=== PATIENT | male | born 1955 | race Caucasian/White ===

== ENCOUNTER 2023-07-22 10:48 | Outpatient (AMB) | payer OTHER, SELFPAY ==
[2023-07-22 10:50] VITALS: BP 164/90; PULSE 66; RESP 17; O2SAT 95; BMI 30.8
--- NOTE | 2023-07-22 10:50 | A.OFFVIS_ITS ---
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 Pt is here with his daughter Charleen, who will be interpreting this visit for him. Pt reports he has become very forgetful over the past year. Living Skills Advisor Required: Yes Living Skills Advisor Name: Prema Villaseñor Allergies No Known Allergies Allergy (Verified 07/22/23 10:55) HPI HPI Comments History of Present Illness Details 68y/o Finnish speaking male comes for ev aluation of memory issues. He is accompanied by his daughter who helps with history . He started having short term memory issues for about 1 year. Last year he developed acute kidney disease ? and he was very confused at that time.He recovered after that but still has short term memory issues.He had confusion with directions once while driving.He forgets what he ate , forgets meds sometimes. he can get confused with dates, time etc.He sometimes has trouble turning off the oven. No trouble using computer or phone. His son in 2018 - was depressed and was taking sertraline.He is still sad and dose was increased. He wakes twice to use the bathroom other paelncia sleep is OK>He has snoring. He has excessive daytime sleepiness and naps twice a day He wakes at 3- 4 am -does breakfast , walking and then naps again. [facility] Medical History (Updated 07/22/23 @ 12:17 by Jenny Gracia MD) Hypersomnia Snoring Cognitive change CAD (coronary artery disease) Kidney disease Headache GERD (gastroesophageal reflux disease) Hyperlipidemia HTN (hypertension) Surgical History H/O inguinal hernia repair Family History Mother No problems noted. Father No problems noted. Social History Household Members: Spouse Housing: Apartment Alcohol intake: never Patient Tobacco Use Status: Former Tobacco user Years Smoked: Quit after smoking for 30 years Physical Exam Vital Signs: Last Vital Signs Pulse 66 07/22/23 10:50 Resp 17 07/22/23 10:50 BP 164/90 H 07/22/23 10:50 Pulse Ox 95 07/22/23 10:50 Oxygen Delivery Method Room Air 07/22/23 10:50 BMI result Body Mass Index 30.8 Const General: cooperative, healthy appearing, comfortable and no acute distress Nutritional Appearance: average body habitus Orientation/consciousness: patient oriented x3 Eyes Pupils: Equal, round and reactive pupils present Neuro General: patient oriented x3, gait normal, tone normal, moves all extremities and no focal motor deficits Cranial nerves: Yes Facial sensation intact/muscles of mastication intact, Yes Equal, round and reactive pupils present, Yes Bilaterally intact EOM present, Yes Nystagmus not present, Yes Normal facial strength present, Yes Midline tongue present, Yes Symmetric palate elevation present and Yes Ability to bilaterally elevate shoulders present Cognition (Neuro): normal cognition Gait exam (Neuro): Normal gait present Motor exam (neuro): 5/5 motor strength present throughout and Normal motor muscle tone present throughout Deep tendon reflexes (DTR's): Right triceps reflex intensity grade: 2+, Left triceps reflex intensity grade: 2+, Rt Biceps (C5, C6): 2+, Left biceps reflex intensity grade: 2+, Right brachioradialis reflex intensity grade: 2+, Left brachioradialis reflex intensity grade: 2+, Right patellar reflex intensity grade: 2+ and Left patellar reflex intensity grade: 2+ Coordination: [id number] test normal Orientation What is the (year) (season) (date) (day) (month)?: year, season, date, day and month Where are we (state) (county) (town or city) (hospital) (floor)?: state, county, town or city, hospital/clinic and floor Registration Name of 3 unrelated objects clearly and slowly, then ask patient to repeat all 3 of them. (1st repeat determines score. Make sure they can repeat all three): object 1, object 2 and object 3 Attention & Calculation (CHOOSE ONE) Spell WORLD backwards (DLROW): 4 letters Recall Ask patient to repeat the 3 items from question #3.: object 1, object 2 and object 3 Language Show patient a wristwatch & ask what it is. Repeat for pencil.: watch and pencil Ask the patient to repeat the phrase 'No ifs, ands, or buts' after you.: correct Ask the patient to 'take a piece of paper with their right hand' 'fold paper in half' 'place paper on floor': take paper in right hand, fold paper in half and place paper on floor Print the sentence 'CLOSE YOUR EYES' on a piece. If patient actually closes eyes then score.: followed written direction Give patient a blank piece of paper & ask to write a sentence. Score if it contains a noun & verb.: sentence contains subject and verb Ask patient to copy figure of intersecting pentagons exactly. Score if all 10 angles & 2 intersects are included.: all 10 angles present & 2 are intersected Score Score: 29 Assessment & Plan Assessment & Plan (1) Cognitive change: Comment: ? related to depression and possible sleep apnea Code(s): R41.89 - Other symptoms and signs involving cognitive functions and awareness (2) Snoring: Code(s): R06.83 - Snoring (3) Hypersomnia: Code(s): G47.10 - Hypersomnia, unspecified Plan I will evaluate him with MRI Brain Vit B 12. TSH ESR CBC CMP Home sleep study to r/o sleep apnea. Orders: Orders TSH reflex Free T4 Today R41.89 - Other symptoms and signs involving cognitive functions and awareness Vitamin B12 and Folate Today R41.89 - Other symptoms and signs involving cognitive functions and awareness Erythrocyte Sedimentation Rate Today R41.89 - Other symptoms and signs involving cognitive functions and awareness Comprehensive Met. Panel Today R41.89 - Other symptoms and signs involving cognitive functions and awareness Complete Blood Count Auto Diff Today R41.89 - Other symptoms and signs involving cognitive functions and awareness RT home sleep study Today G47.10 - Hypersomnia, unspecified, R06.83 - Snoring MR head/brain wo con Today R41.89 - Other symptoms and signs involving cognitive functions and awareness Coding Level of Care Code New Pt Level 4 (25649) Diagnoses Cognitive change R41.89 Snoring R06.83 Hypersomnia G47.10
== END 2023-07-22 11:34 | disposition home or self-care (01) ==
PROVIDERS: PCP Nurse Practitioner Family; Visit Provider Psychiatry & Neurology Neurology
DX: R41.89 Other symptoms and signs involving cognitive functions and awareness (principal); R06.83 Snoring; G47.10 Hypersomnia, unspecified
CPT/HCPCS: 99204

== ENCOUNTER → 2023-07-22 10:48 | Outpatient (BNVA) | payer OTHER, SELFPAY | PROVIDERS: PCP Nurse Practitioner Family; Visit Provider Psychiatry & Neurology Neurology ==